=== PATIENT | male | born 2000 | race Two or more races ===

== ENCOUNTER 2020-11-25 11:40 | Emergency (ER) | payer OTHER ==
[~2020-11-25] VITALS: Ht 180.3 cm; Wt 77.1 kg
--- NOTE | 2020-11-25 12:02 | NUR ---
[email or web address], medical screening exam in progress
[2020-11-25 12:34] LABS: BASOPHILS # (AUTO) 0.1 K/uL (0.0-8.0); BASOPHILS % (AUTO) 1.3 % (0.0-2.0); EOSINOPHILS # (AUTO) 0.1 K/uL (0.0-0.7); EOSINOPHILS % (AUTO) 1.3 % (0.0-7.0); HEMATOCRIT 46.2 % (36.7-47.1); HEMOGLOBIN 15.8 g/dL (12.5-16.3); LYMPHOCYTES # (AUTO) 1.4 K/uL (20.0-40.0); MEAN CORPUSCULAR HEMOGLOBIN 32.1 uug (23.8-33.4); MEAN CORPUSCULAR HGB CONC 34 g/dL (32.5-36.3); MEAN CORPUSCULAR VOLUME 93.7 fL (73.0-96.2); MONOCYTES # (AUTO) 0.4 K/uL (2.0-10.0); MONOCYTES % (AUTO) 7.8 % (0.0-11.0); NEUTROPHILS # (AUTO) 3.2 K/uL (1.8-8.9); NEUTROPHILS % (AUTO) 62.6 % (38.5-71.5); PLATELET COUNT (AUTO) 267 K/uL (152-348); RED BLOOD CELL COUNT(AUTO) 4.93 MIL/uL (4.06-5.63); WHITE BLOOD COUNT (AUTO) 5.1 K/uL (3.6-10.2)
[2020-11-25 12:42] LABS: POTASSIUM 3.9 mmol/L (3.5-5.1)
[2020-11-25 12:48] LABS: BILIRUBIN,DIRECT 0.1 mg/dL (0.0-0.2); BILIRUBIN,TOTAL 0.2 mg/dL (0.2-1.0); TOTAL PROTEIN, SERUM 7.4 g/dL (6.4-8.2)
[2020-11-25] MEDS ORDERED: ASPIRIN 325 MG TABLET PO ONE ×2 (13:00→13:30)
[2020-11-25] MEDS ORDERED: ASPIRIN 325 MG TABLET ONE (13:09)
--- NOTE | 2020-11-25 13:23 | NUR ---
Patient is resting comfortably on gurney with eyes closed. PATIENT IS PAIN FREE AT THIS TIME.
[2020-11-25] MEDS ORDERED: IBUPROFEN 600 MG TABLET PO ONE (14:45)
[2020-11-25] MEDS ORDERED: IBUPROFEN 600 MG TABLET ONE (14:53)
--- NOTE | 2020-11-25 15:04 | NUR ---
Patient voided 3x in the bathroom ,for repeat EKG & blood draw@ around [address] Guardado.
--- NOTE | 2020-11-25 16:08 | NUR ---
Patient is now ready for discharged by Dr Guardado to his rehab treatment center, +brisk steady gait. Written and verbal after care instructions given to patient and his own mental health worker Meme is coming to lease picker the patient. Patient verbalized understanding & compliance of instructions. Stressed follow up with jr. java developer in 2-3 days or return to ER for worsening s/s.
--- NOTE | 2020-11-25 16:19 | NUR ---
Patient left ER in stable condition.
== END 2020-11-25 16:19 | disposition home or self-care (01) ==
LOC: ER 11:40
DX: R07.9 Chest pain, unspecified (principal); F17.210 Nicotine dependence, cigarettes, uncomplicated; R03.0 Elevated blood-pressure reading, without diagnosis of hypertension
CPT/HCPCS: 36415; 70030-TC; 71045; 85025; 93005; A4663